=== PATIENT | male | born 1990 | race Caucasian/White ===

== ENCOUNTER 2024-04-30 11:39 | Emergency (ER) | payer OTHER, SELFPAY ==
[2024-04-30] VITALS (12 sets, daily range): BP systolic 135–153; BP diastolic 88–113; PULSE 64–90; RESP 12–18; TEMP 35.9; O2SAT 96–99; BMI 29.7
--- NOTE | 2024-04-30 12:10 | CRLHL7_ITS ---
For Patients: As a result of the Century Cures Act, medical imaging exams and procedure reports are released immediately into your electronic medical record. You may view this report before your referring provider. If you have questions, please contact your health care provider. Indication: FELL OFF BULL LAST NIGHT. LANDED ON ABD. L LOW BACK PAIN Technique: CT abdomen/pelvis with IV contrast, 110 mL Isovue 370 Comparison: None Findings: Lower thorax: Unremarkable Abdomen/pelvis: Diffuse hepatic steatosis with minimal sparing near the gallbladder fossa. No suspicious hepatic lesions. The gallbladder and biliary system are unremarkable. The spleen, pancreas, and bilateral adrenal glands are unremarkable. The kidneys, ureters, and bladder are unremarkable in appearance. The seminal vesicles, prostate, and visualized external genitalia are unremarkable. No evidence of bowel obstruction, inflammation, or acute traumatic injury. The appendix is normal in appearance. Few scattered colonic diverticula without CT evidence of acute diverticulitis. No free fluid or free air. No abscess. No abdominopelvic lymphadenopathy. The vasculature is unremarkable. Soft tissue/musculoskeletal: The soft tissues are unremarkable. The osseous structures are without acute fracture or malalignment. Os acetabuli bilaterally. No suspicious osseous lesions. Small benign bone island in the right femoral head. Impression: 1. No CT evidence of acute traumatic injury involving the abdomen or pelvis. 2. Incidental findings as detailed above. Please note that all CT scans at this facility use dose modulation, iterative reconstruction, and/or weight-based dosing when appropriate to reduce radiation dose to as low as reasonably achievable. Dictated by Indra Barfield MD @ 04/30/2024 1:33:54 PM (Electronically Signed)
--- NOTE | 2024-04-30 12:16 | ED_ITS ---
HPI - Back Pain/Injury General Date Seen: 04/30/24 Chief Complaint: Back Injury/Pain Stated Complaint: back injury-bucked off bull last night Time Seen by Provider: 04/30/24 11:41 Source: patient Mode of arrival: ambulatory Limitations: no limitations History of Present Illness HPI Narrative: Patient is a 34-year-old male presenting to the emergency department for low back pain. Last night he was at the [employer] when he was bucked off a bull. He said he landed on his abdomen. Was wearing a helmet. Is stating now he is having low back pain just lateral to the left of the spine. Denies saddle anesthesia, urinary retention, fevers. No history of IV drug use. Is not having any abdominal pain right now. Pain seems to be a both the L4 region. Denies chest pain, shortness of breath, headache, neck pain, fevers, chills, weakness, numbness. No other concerns noted at this time Related Data Previous Rx's ?Medication ?Instructions ?Recorded cyclobenzaprine 10 mg tablet 10 mg PO TID PRN muscle spasm #15 04/30/24 tabs Allergies Allergy/AdvReac Type Severity Reaction Status Date / Time penicillin G Allergy Verified 04/30/24 13:01 Review of Systems Status of ROS: Reports: 10 or more systems reviewed and unremarkable except as noted in History and below [facility] Social History Smoking Status: Never smoker How often do you have a drink containing alcohol: never AUDIT-C Alcohol total score: 0 Non-prescribed substance use: denies use Exam Narrative: Exam Narrative: Const: Well-nourished, Well-developed, in mild distress Eyes: PERRL, no conjunctival injection, and symmetrical lids HENT: Atraumatic external nose and ears. Moist mucous membranes. Neck: Symmetric, trachea midline, No thyromegaly. CVS: RRR, No murmurs or gallops. Peripheral pulses 2+ and equal in all extremities RESP: Unlabored respiratory effort. Clear to auscultation bilaterally. GI: Nontender/Nondistended, No rebound or guarding. MSK:Extremities w/o deformity, Normal Active ROM, no midline spinal tenderness or step-offs. There is tenderness to palpation within the paraspinal muscles just to the left of the spine at about L4 region Skin: Warm, Dry. No rashes or lesions. Neuro: Normal Muscle tone, No focal neurological deficits. GCS 15 Psych: Awake, Alert, & Oriented x3. Appropriate mood and affect. Const: Vital Signs, click to edit/add: Vital Signs - 24 hr 04/30/24 11:54 04/30/24 12:07 04/30/24 12:12 Temperature 96.7 F L Pulse Rate 78 78 Pulse Rate [Left P ulse Oximeter] 77 Respiratory Rate 18 14 12 Blood Pressure 139/113 H 145/101 H Blood Pressure [Ri ght Upper Arm] 153/100 H Pulse Oximetry 98 99 96 Oxygen Delivery Me thod Room Air 04/30/24 12:22 04/30/24 12:32 04/30/24 13:09 Temperature Pulse Rate 65 67 90 Pulse Rate [Left P ulse Oximeter] Respiratory Rate 14 16 14 Blood Pressure 138/100 H 138/96 H Blood Pressure [Ri ght Upper Arm] Pulse Oximetry 96 98 97 Oxygen Delivery Me thod 04/30/24 13:12 04/30/24 13:22 04/30/24 13:32 Temperature Pulse Rate 78 84 79 Pulse Rate [Left P ulse Oximeter] Respiratory Rate 12 14 16 Blood Pressure 146/95 H 138/92 H 137/92 H Blood Pressure [Ri ght Upper Arm] Pulse Oximetry 98 99 99 Oxygen Delivery Me thod 04/30/24 13:42 04/30/24 13:52 04/30/24 14:01 Temperature Pulse Rate 71 69 64 Pulse Rate [Left P ulse Oximeter] Respiratory Rate 14 16 12 Blood Pressure 135/88 141/96 H 135/89 Blood Pressure [Ri ght Upper Arm] Pulse Oximetry 98 98 99 Oxygen Delivery Me thod Room Air Course Vital Signs Vital signs: Initial Vital Signs Temperature 96.7 F L 04/30/24 11:54 Temperature Source Temporal Artery Scan 04/30/24 11:54 Pulse Rate 77 04/30/24 11:54 Respiratory Rate 18 04/30/24 11:54 Blood Pressure 153/100 H 04/30/24 11:54 Blood Pressure Mean 117 H 04/30/24 11:54 Blood Pressure Position Sitting 04/30/24 11:54 Pulse Oximetry 98 04/30/24 11:54 Oxygen Delivery Method Room Air 04/30/24 11:54 Vital Signs Temperature 96.7 F L 04/30/24 11:54 Pulse Rate 77 04/30/24 11:54 Respiratory Rate 18 04/30/24 11:54 Blood Pressure 153/100 H 04/30/24 11:54 Pulse Oximetry 98 04/30/24 11:54 Oxygen Delivery Method Room Air 04/30/24 11:54 Temperature 96.7 F L 04/30/24 11:54 Pulse Rate 64 04/30/24 14:01 Respiratory Rate 12 04/30/24 14:01 Blood Pressure 135/89 04/30/24 14:01 Pulse Oximetry 99 04/30/24 14:01 Oxygen Delivery Method Room Air 04/30/24 14:01 Medications Administered Medications: Discontinued Medications Generic Name Dose Route Start Last Admin Trade Name Freq PRN Reason Stop Dose Admin Ketorolac Tromethamine 30 mg 04/30/24 12:10 04/30/24 12:25 Ketorolac 30 Mg/Ml Inj IM 04/30/24 12:11 30 mg ONCE ONE Administration MDM - Back Pain/Injury MDM Narrative Medical decision making narrative: Patient is a 34-year-old male presenting for back pain. Concerning the nature of the injury I will do CT scan of the abdomen pelvis to both evaluate any intra-abdominal issues and in the spine. Toradol given for pain. Also order a CBC and BMP. No red flag symptoms for cauda equina. Lab work returned showing no concerning abnormalities. Considering he is having no other symptoms other than the low back main any is abdomen he landed on his abdomen I do not believe any further imaging is necessary. CT scan reviewed by myself and Duane shows no concerning abnormalities. He is doing well at this time will be discharged. Will discharge him with a muscle relaxer. He is agreeable to this plan. Lab Data Labs: Lab Results 04/30/24 Range/Units 12:40 WBC 6.81 (4.50-11.00) K/uL RBC 4.74 (4.30-5.90) m/uL Hgb 14.3 (13.5-17.5) gm/dL Hct 42.0 (37.0-53.0) % MCV 89 (80-100) fL MCH 30 (26-34) pg MCHC 34 (32-36) gm/dL RDW Coeff of Elyssa 11.9 (11.5-15.5) % Plt Count 235 (140-440) K/uL Neut % (Auto) 67.5 (42.0-72.0) % Lymph % (Auto) 24.4 (20-44) % [place] % (Auto) 7.6 (0.0-11.0) % Eos % (Auto) 0.4 (0.0-7.0) % Baso % (Auto) 0.1 (0.0-3.0) % Neut # (Auto) 4.59 (1.7-7.0) K/uL Lymph # (Auto) 1.66 (0.90-2.90) K/uL [place] # (Auto) 0.50 (0.00-0.90) K/UL Eos # (Auto) 0.03 (0.00-0.50) K/uL Baso # (Auto) 0.01 (0.00-0.30) K/uL Abs Immat Gran (auto) 0.00 (0.00-0.30) K/uL Imm/Tot Granulo (auto) 0.0 % Sodium 139 (135-149) mmol/L Potassium 3.9 (3.6-5.1) mmol/L Chloride 102 (96-114) mmol/L Carbon Dioxide 28 (20-32) mmol/L Anion Gap 9 (7-15) mEq/L BUN 17 (5-24) mg/dL Creatinine 1.3 (0.5-1.5) mg/dL Estimated Creat Clear 88.78 Estimated GFR 73 ml/min Glucose 91 (60-115) mg/dL Calcium 9.8 (8.4-10.6) mg/dL Imaging Data CT scan abdomen and pelvis: Attestation: I have reviewed the pertinent imaging results. Radiologist's impression: 1. No CT evidence of acute traumatic injury involving the abdomen or pelvis. 2. Incidental findings as detailed above. Please note that all CT scans at this facility use dose modulation, iterative reconstruction, and/or weight-based dosing when appropriate to reduce radiation dose to as low as reasonably achievable. Dictated by Indra Barfield MD @ 04/30/2024 1:33:54 PM Discharge Plan Discharge Clinical Impression: Strain of lumbar region Qualifiers: Encounter type: initial encounter Qualified Code(s): S39.012A - Strain of muscle, fascia and tendon of lower back, initial encounter Patient Disposition: Home, Self-Care Condition: Improved Instructions: Low Back Strain (ED) Additional Instructions: Take Tylenol and ibuprofen for pain. If that does not help we can try the muscle relaxer. Return to emergency department for new or worsening symptoms. Prescriptions: New cyclobenzaprine 10 mg tablet 10 mg PO TID PRN (Reason: muscle spasm) Qty: 15 0RF Follow Up/Referrals: Jenny Peguero MD [Primary Care Provider] - Stand Alone Forms: [employer] Info Instructions
[2024-04-30] MEDS: KETOROLAC 30 MG/ML inj IM (12:25)
--- OUTSIDE RECORDS SUMMARY | 2024-04-30 12:31 | XMS_ITS | Continuity of Care Document ---
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 It does not include entries that were removed or entered in error. Problem Status Onset Date Problem Type Date of Resolution Comments Source Chronic post-traumatic stress disorder following combat Active Condition [facility] Headache Active Condition [place] [facility] Major depressive disorder Active Condition [facility] Tinnitus Active Condition [facility] Contact with and (Suspected) Exposure to other Potentially Hazardous Chemicals Inactive Condition 09/11/2013 Nov 20, 2010 Entered By: ELVIS THOMAS Comment: [place] exp sandstorms, burn pits, dep uraniumNov 20, 2010 Entered By: ELVIS THOMAS Comment: heavy metal screen, dep uranium, CXR, PFTs 11/20/10 [facility] visit for: services physical Active Condition [facility] visit for: ears / hearing exam Active Condition [facility] visit for: examination of subpopulation Inactive Condition [facility] visit for: services physical accession Inactive Condition [facility] visit for: ears, nose, and throat exam Inactive Condition [facility] Patient Education - Injury Prevention Inactive Condition [facility] Diagnosis: ICD-10-CM F43.12 Post-traumatic stress disorder, chronic Active Diagnosis [facility] Allergies, Adverse Reactions, Alerts Combined list of allergies from Department of Defense and Veterans Affairs facilities. It does not include entries that were removed or entered in error. Substance Category Reaction Severity Reaction type Status Date Reported Comments Source PENICILLIN Propensity to adverse reactions to drug (finding) active 1 [facility] Immunizations Combined list of available immunizations from the Department of Defense and Veterans Affairs facilities. 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 (NOV) complet ed Novel influenza -M9E6-09, injectabl e [facility] anthrax vaccine 3 2008 [id number] Unknown (UNK) comple t ed anthrax vaccine DoD influenza virus vaccine, split virus (incl. purified surface antigen)-reti red CODE 1 2008 [id number] Sanofi Pasteur ([facility]) complet ed influenza virus vaccine, split virus (incl. purified surface antigen)- retired CODE DoD anthrax vaccine 2 2008 [id number] [employer] [place] ([facility]) complet ed anthrax vaccine DoD influenza virus vaccine, split virus (incl. purified surface antigen)-reti red CODE 1 2008 [id number] 15 Sanofi Pasteur ([facility]) complet ed influenza virus vaccine, split virus (incl. purified surface antigen)- retired CODE DoD vaccinia (smallpox) vaccine 1 2008 [id number] 3A 75 ACAMBIS-Kid$Shirt [facility] ([facility]) complet ed vaccinia (smallpox ) vaccine DoD typhoid Vi capsular polysaccharid e vaccine 1 2008 [id number] Sanofi Pasteur ([facility]) complet ed typhoid Vi capsular polysacch aride vaccine DoD anthrax vaccine 1 2008 [id number] [employer] [place] ([facility]) complet ed anthrax vaccine DoD TDAP 2008 115 complet ed [place] [facility] hepatitis B vaccine, adult dosage 3 2006 [id number] 43 Unknown (UNK) complet ed hepatitis B vaccine, adult dosage DoD hepatitis A vaccine, adult dosage 3 2006 [id number] 52 Unknown (UNK) complet ed hepatitis A vaccine, adult dosage DoD varicella virus vaccine 1 2005 UNK 21 Unknown (UNK) Not Given varicella virus vaccine DoD measles, mumps and rubella virus vaccine 1 2005 [id number] Merck (MSD) complet ed measles, mumps and rubella virus vaccine DoD hepatitis A and hepatitis B vaccine 2 2005 [id number] 104 SmithCureatrine (SKB) complet ed hepatitis A and hepatitis B vaccine DoD influenza virus vaccine, live, attenuated, for intranasal use 1 2005 [id number] Merck (MSD) complet ed influenza virus vaccine, live, attenuate d, for intranasa l use DoD influenza virus vaccine, split virus (incl. purified surface antigen)-reti red CODE 1 2004 [id number] 15 Unknown (UNK) comple t ed influenza virus vaccine, split virus (incl. purified surface antigen)- retired CODE DoD measles, mumps and rubella virus vaccine 1 2004 UNK 03 Unknown (UNK) comple t ed measles, mumps and rubella virus vaccine DoD tetanus and diphtheria toxoids, adsorbed, preservative free, for adult use (2 Lf of tetanus toxoid and 2 Lf of diphtheria toxoid) 1 2004 UNK 09 Unknown (UNK) comple t ed tetanus and diphtheri a toxoids, adsorbed, preservat ori free, for adult use (2 Lf of tetanus toxoid and 2 Lf of diphtheri a toxoid) DoD poliovirus vaccine, inactivated 1 2004 UNK 10 Unknown (UNK) comple t ed polioviru s vaccine, inactivat ed DoD influenza virus vaccine, split virus (incl. purified surface antigen)-reti red CODE 1 2004 UNK 15 Unknown (UNK) comple t ed influenza virus vaccine, split virus (incl. purified surface antigen)- retired CODE DoD hepatitis A and hepatitis B vaccine 1 2004 UNK 104 Unknown (UNK) comple t ed hepatitis A and hepatitis B vaccine DoD meningococcal ACWY vaccine, unspecified formulation 1 2004 UNK 108 Unknown (UNK) comple t ed meningoco ccal ACWY vaccine, unspecifi ed formulati on DoD Vital Signs Combined list of inpatient and outpatient Vital Signs from Department of Defense and Veterans Affairs, ranging from 12 months to all on record, depending upon the facility. Vital Sign Value Date Comments Source Encounters Combined list of: 1) Encounters from Department of Veterans Affairs facilities going back up to thelast 18 months. 2) Encounters from the Department of Defense facilities going back up to 280 months. Location Location Details Encounter Type Encounter Number Reason For Visit Attending Provider ADM Date DC Date Status Disposition Source [facility] Thelma Beal ID(IEP Hearing Conservat ion Exam) OUTPATIENT [id number] KRISTINAGENEVIEVEVALERY 05/20 Released w/o Limitations [facility] Thelma Beal ID(IEP Hearing Conserv ation Exam) [facility] Thelma Beal ID(IEP Optometry ) OUTPATIENT [id number] SOPHY VENEGAS A 05/28 Released w/o Limitations [facility] Leonard Emigdio ID(IEP Optomet ry) [facility]([place] [place] [facility]) OUTPATIENT [id number] ALIRIO CARRANZA A 10/14 Released w/o Limitations [facility] ) [facility] PSYTX W PT 45 MINUTES [id number] Diagnos is: ICD-10- CM F43.12 Post-tr aumatic stress disorde r, chronic
TAYLOR GUILLEN H 11/05 MARNIE Latham [facility] PSYCH DIAGNOSTIC EVALUATION [id number] Diagnos is: ICD-10- CM F43.12 Post-tr aumatic stress disorde r, chronic
PISCHKE,PA TRICK 11/26 [facility] HC PRO PHONE CALL 11-20 MIN [id number] Diagnos is: ICD-10- CM F43.12 Post-tr aumatic stress disorde r, chronic
PISCHKE,PA TRICK 11/27 [place] [facility] [place] [facility] PSYTX W PT 60 MINUTES [id number] [id number] Diagnos is: ICD-10- CM F43.12 Post-tr aumatic stress disorde r, chronic
PISCHKE,PA TRICK 12/03 [place] [facility] [place] [facility] PSYTX W PT 60 MINUTES [id number] Diagnos is: ICD-10- CM F43.12 Post-tr aumatic stress disorde r, chronic
PISCHKE,PA TRICK 12/10 [place] [facility] [place] [facility] Outpatient Encounter [id number] 12/17 [place] [facility] [place] [facility] PSYTX W PT 60 MINUTES [id number] [id number] Diagnos is: ICD-10- CM F43.12 Post-tr aumatic stress disorde r, chronic
PISCHKE,PA TRICK 12/24 [place] [facility] [place] [facility] PSYTX W PT 60 MINUTES [id number] Diagnos is: ICD-10- CM F43.12 Post-tr aumatic stress disorde r, chronic
PISCHKE,PA TRICK 12/31 [place] [facility] [place] [facility] PSY[facility] W PT 60 MINUTES [id number] Diagnos is: ICD-10- CM F43.12 Post-tr aumatic stress disorde r, chronic
PISCHKE,PA TRICK 01/07 [place] [facility] PSYTX W PT 60 MINUTES [id number] Diagnos is: ICD-10- CM F43.12 Post-tr aumatic stress disorde r, chronic
PISCHKE,PA TRICK 01/18 [place] [facility] Outpatient Encounter [id number] 01/22 [place] [facility] PSYTX W PT 60 MINUTES [id number] [id number] Diagnos is: ICD-10- CM F43.12 Post-tr aumatic stress disorde r, chronic
PISCHKE,PA TRICK 01/29 [place] [facility] PSYTX W PT 60 MINUTES [id number] [id number] Diagnos is: ICD-10- CM F43.12 Post-tr aumatic stress disorde r, chronic
PISCHKE,PA TRICK 02/14 [place] [facility] Outpatient Encounter [id number] 02/25 [facility] Ambulator y Pharmacy [facility] [id number] 12/25 Ambul[facility] Pharmac [facility] Outside Documentat ion Only [id number] 12/25 Discharge Disposition: Home or Self Care [facility] [facility] [facility] Mass Readiness [id number] 12/29 Discharge Disposition: Home or Self Care [facility] [facility] [facility] Between Visit [id number] 01/07 Discharge Disposition: Home or Self Care [facility] [facility] Procedures Combined list of: 1) Procedures from Department of Veterans Affairs facilities going back up to thelast 18 months, not all VA non-surgical procedures are included; 2) All procedures from the Department of Defense facilities. Procedure Procedure Type Code Date Perfomer Comments Sourc e No data available for this section Amb[facility] Pharmacy SCREENING TEST OF VISUAL ACUITY, QUANTITATIVE, BILATERAL 05/28/20 06 [facility] INFLUENZA VIRUS VACCINE, TRIVALENT, LIVE (LAIV3), FOR INTRANASAL USE 05/23/20 06 [facility] PATIENT EDUCATION, NOT OTHERWISE CLASSIFIED, NON-PHYSICIAN PROVIDER, GROUP, PER SESSION 05/20/20 06 [facility] PHYS/OTH QUALIFIED HEALTH SCALE BALANCER QUALIFIED,EDUCATI ON,TRAIN,LICENSUR E/REGULATION (WHEN APPLICABLE) EDUC SER RENDERED TO PATS IN A GRP SETTING (EG,,OBES ITY,OR DIABETIC INSTRUCT) 10/14/19 10 [facility] COLLECTION OF VENOUS BLOOD BY VENIPUNCTURE 10/12/19 10 [facility] ANALYSIS OF CLINICAL DATA STORED IN COMPUTERS (EG, ECGS, BLOOD PRESSURES, HEMATOLOGIC DATA) 11/27/19 09 [facility] COLLECTION OF VENOUS BLOOD BY VENIPUNCTURE 11/27/19 09 [facility] Special Physician Services Analysis Of Computerized Data Special Physician Services Analysis Of Computerized Data [id number] 10/17/19 10 ALIRIO CARRANZA DoD Physician Supervised Group Educational Services 10/17/19 10 ALIRIO CARRANZA Threshold Audiogram (Pure Tone) Threshold Audiogram (Pure Tone) [id number] 10/17/19 10 ALIRIO CARRANZA ENT Services ENT Services [id number] 10/17/19 10 ALIRIO CARRANZA Audiometry Group Testing Audiometry Group Testing [id number] 10/17/19 10 ALIRIO CARRANZA Determination Of Refractive State Determination Of Refractive State [id number] 05/28/20 06 SOPHY VENEGAS [facility] Screening Test Of Visual Acuity, Quantitative, Bilateral Screening Test Of Visual Acuity, Quantitative, Bilateral [id number] 05/28/20 06 SOPHY VENEGAS [facility] Audiometry Group Testing Audiometry Group Testing [id number] 05/20/20 06 ALEKSANDR POLK [facility] Physician Supervised Services Provision Of Special Supplies Physician Supervised Services Provision Of Special Supplies [id number] 05/20/20 06 ALEKSANDR POLK [facility] Ear mold/insert, not disposable, any type 05/20/20 06 ALEKSANDR POLK [facility] Patient education, not otherwise cla ified, non-physician provider, group, per se ion 05/20/20 06 ALEKSANDR POLK Social History Combined list of available smoking, tobacco, and other social history from Department of Defense and Veterans Affairs facilities. Social History Type Response Date Comment Sour e Tobacco smoking status PAIS LIFETIME NON-TOBACCO USER 11/20/2010 [facility] This section is an empty social history section. [facility] Assessment and Plan Combined list of future care activities from Department of Defense and Veterans Affairs facilities (e.g., assessment and plan notes, appointments, orders, and referrals). Additional future care activities may be listed in the Plan of Care section. Result Assessment and Plan Date Source Assessment and Plan Extracted from:Title : Education Note Author: CARLOS IVORY, EMT-B Date: 12/31/23 04/30/2024 Ambulatory Pharmacy Functional Status Combined list of recent functional and cognitive assessments recorded at Department of Defense and [facility] Affairs ([place]VA Functional Divide Measurement (FIM) Scale: 1 = Total Assistance (Subject = 0% +), 2 = Maximal Assistance (Subject = 25% +), 3 = Moderate Assistance (Subject = 50% +), 4 = Minimal Assistance (Subject = 75% +), 5 = Supervision, 6 = Modified Divide (Device), 7 = Complete Divide (Timely, Safely). Assessment Date/Time Source Assessment Type Assessment Skill Assessment Score Assessment Details No data available for this section
[2024-04-30 12:48] LABS: Basophils Absolute Auto 0.01 K/uL (0.00-0.30); Basophils Percent Auto 0.1 % (0.0-3.0); Eosinophils Absolute Auto 0.03 K/uL (0.00-0.50); Eosinophils Percent Auto 0.4 % (0.0-7.0); Hemoglobin* 14.3 gm/dL (13.5-17.5); Lymphocytes Absolute Auto 1.66 K/uL (0.90-2.90); Lymphocytes Percent Auto 24.4 % (20-44); Mean Corpuscular HGB Conc 34 gm/dL (32-36); Mean Corpuscular Hemoglobin 30 pg (26-34); Mean Corpuscular Volume 89 fL (80-100); Monocytes Percent Auto 7.6 % (0.0-11.0); Neutrophils Absolute Auto 4.59 K/uL (1.7-7.0); Neutrophils Percent Auto 67.5 % (42.0-72.0); Platelet Count* 235 K/uL (140-440); RDW Coefficient of Variation % 11.9 % (11.5-15.5); Red Blood Count 4.74 m/uL (4.30-5.90); White Blood Count* 6.81 K/uL (4.50-11.00)
[2024-04-30 12:56] LABS: Slide Review Reflex No
[2024-04-30 13:01] LABS: Chloride* 102 mmol/L (96-114); Potassium* 3.9 mmol/L (3.6-5.1); Sodium* 139 mmol/L (135-149)
[2024-04-30 13:04] LABS: Anion Gap 9 mEq/L (7-15); Blood Urea Nitrogen* 17 mg/dL (5-24); Carbon Dioxide* 28 mmol/L (20-32); Creatinine* 1.3 mg/dL (0.5-1.5); Est. Creatinine Clearance* 88.78; Estimated Glomerular Filt Rate 73 ml/min; Glucose* 91 mg/dL (60-115)
[2024-04-30 13:05] LABS: Calcium* 9.8 mg/dL (8.4-10.6)
== END 2024-04-30 14:10 | disposition home or self-care (01) ==
PROVIDERS: Emergency Provider Student in an Organized Health Care Education/Training Program; PCP Family Medicine
DX: S39.012A Strain of muscle, fascia and tendon of lower back, initial encounter (principal); V80.018A Animal-rider injured by fall from or being thrown from other animal in noncollision accident, initial encounter; Y92.39 Other specified sports and athletic area as the place of occurrence of the external cause
CPT/HCPCS: 36415; 74177; 80048; 85025; 90471; 99283; 99284; 99291; J1885; Q9967

== ENCOUNTER 2024-06-18 13:45 | Outpatient (RCR) | payer OTHER, SELFPAY | END 2024-09-08 13:00 | disposition home or self-care (01) | PROVIDERS: PCP Family Medicine; Visit Provider Physician Assistant | DX: M54.50 Low back pain, unspecified (principal); M54.32 Sciatica, left side; W19.XXXA Unspecified fall, initial encounter | CPT/HCPCS: 97110; 97140; 97161 ==